=== PATIENT | female | born 1955 | race Asian ===

== ENCOUNTER 2017-10-31 12:05 | Emergency (ER) | payer BC, OTHER ==
[2017-10-31] MEDS ORDERED: Bacitracin Oint 1 GM U/D Packet TOP ONE (12:46)
--- NOTE | 2017-10-31 12:51 | EDM.PDOC ---
ED HPI GENERAL MEDICAL PROBLEM - General Chief Complaint: Exposure to Heat or Cold Stated Complaint: BURN ON LEFT HAND Time Seen by Provider: 10/31/17 12:41 Source of Information: Reports: Patient, RN Notes Reviewed History Limitations: Reports: No Limitations - History of Present Illness INITIAL COMMENTS - FREE TEXT/NARRATIVE: This is a work injury 62-year-old female presents to the emergency department today with complaint of burn on her left hand. 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 Left Hand Pain Score (Numeric/FACES): 8 - Related Data Allergies Allergy/AdvReac Type Severity Reaction Status Date / Time No Known Allergies Allergy Verified 10/31/17 12:21 Home Meds: Home Meds Calcium Carbonate/Vitamin D3 [Calcium Carbonate/Vitamin D 600 MG-200 Unit] 1 tab PO DAILY 08/28/17 [History] Cholecalciferol (Vitamin D3) [Vitamin D3] 1,000 units PO DAILY 08/28/17 [History ] Gluc 2KCl/Chondr/Muriel Hy/Hy Ac [Glucosamine & Chondroitin Cap] 1 each PO DAILY 08/28/17 [History] Glucosamine [Glucosamine Sulfate] 500 mg PO DAILY 08/28/17 [History] Vitamin E 400 units PO DAILY 08/28/17 [History] Bacitracin [Bacitracin Oint] 15 gm .XX DAILY #1 tube 10/31/17 [Rx] 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: Musculoskeletal History: Reports: Other (See Below) Other Musculoskeletal History: R knee pain - Infectious Disease History Infectious Disease History: Reports: Chicken Pox - Past Surgical History Female Surgical History: Reports: Section Social & Family History - Tobacco Use Smoking Status *Q: Never Smoker Second Hand Smoke Exposure: No - Caffeine Use Caffeine Use: Reports: Coffee - Alcohol Use Days Per Week of Alcohol Use: 0 - Recreational Drug Use Recreational Drug Use: No ED ROS GENERAL - Review of Systems Review Of Systems: See Below Constitutional: Reports: No Symptoms Skin: Reports: Wound, Burn(s) ED EXAM, GENERAL - Physical Exam Exam: See Below Free Text/Narrative:: Examination left hand she does have a few blisters that are starting to form palmar surface of his about the size of $0.50 piece, full range of motion all digits radial pulse +2 Exam Limited By: No Limitations General Appearance: Alert, WD/WN, No Apparent Distress Course - Vital Signs Last Recorded V/S: Last Vital Signs Temp 97.5 F 10/31/17 12:27 Pulse 63 10/31/17 12:27 Resp 16 10/31/17 12:27 BP 159/105 H 10/31/17 12:27 Pulse Ox 98 10/31/17 12:27 - Orders/Labs/Meds Meds: Medications Discontinued Medications Generic Name Dose Route Start Last Admin Trade Name Freddie PRN Reason Stop Dose Admin Bacitracin 1 dose 10/31/17 12:46 Bacitracin Oint 1 Gm TOP 10/31/17 12:47 ONETIME ONE Departure - Departure Time of Disposition: 14:05 Disposition: Home, Self-Care 01 Condition: Good Clinical Impression: Partial thickness burn of left hand Qualifiers: Encounter type: initial encounter Burn of hand location: palm Qualified Code(s) : T23.252A - Burn of second degree of left palm, initial encounter - Discharge Information Prescriptions: Bacitracin [Bacitracin Oint] 15 gm .XX DAILY #1 tube Instructions: Burn Care, Adult, [id number] Referrals: PCP,None [Primary Care Provider] - Forms: ED Department Discharge Additional Instructions: Continue to dress the wound with bacitracin antibiotic and clean dressings daily , Please followup with your primary care provider in 3 to 5 days if not better , please call return to the emergency department with worsening of symptoms. - Assessment/Plan Plan: Assessment Acuity = acute Site and laterality = partial-thickness burn left hand Etiology = secondary to touching a hot stove Manifestations = pain Location of injury = work Lab values = none Plan Bacitracin was used to cover the wound topically dressing applied tetanus up-to- date, follow-up primary care 3-5 days if no improvement This note was dictated using [employer] voice recognition software please call with any questions on syntax or grammar.
== END 2017-10-31 13:08 | disposition home or self-care (01) ==
LOC: JP.ED 12:05
DX: T23.252A Burn of second degree of left palm, initial encounter (principal); X15.0XXA Contact with hot stove (kitchen), initial encounter
CPT/HCPCS: 99283

== ENCOUNTER 2018-03-01 08:52 | Emergency (ER) | payer BC ==
--- NOTE | 2018-03-01 09:27 | EDM.PDOC ---
ED HPI GENERAL MEDICAL PROBLEM - General Chief Complaint: Neurological Problem Stated Complaint: VOMITING DIZZY Time Seen by Provider: 03/01/18 09:00 Source of Information: Reports: Patient History Limitations: Reports: No Limitations - History of Present Illness INITIAL COMMENTS - FREE TEXT/NARRATIVE: 62-year-old female with sudden onset of vomiting and vertigo 3 hours ago. She felt fine prior to symptom onset. No headache, fevers or chills. She is having trouble standing and initially had persistent vomiting. No recent trauma or illness. No previous episodes. She is otherwise healthy. Onset: Sudden Duration: Hour(s): (3 hours ago) Associated Symptoms: Reports: Malaise, Nausea/Vomiting. Denies: Confusion, Chest Pain, Cough, Headaches - Related Data Allergies Allergy/AdvReac Type Severity Reaction Status Date / Time No Known Allergies Allergy Verified 03/01/18 09:04 Home Meds: Home Meds Calcium Carbonate/Vitamin D3 [Calcium Carbonate/Vitamin D 600 MG-200 Unit] 1 tab PO DAILY 08/28/17 [History] Cholecalciferol (Vitamin D3) [Vitamin D3] 1,000 units PO DAILY 08/28/17 [History ] Gluc 2KCl/Chondr/Muriel Hy/Hy Ac [Glucosamine & Chondroitin Cap] 1 each PO DAILY 08/28/17 [History] Glucosamine [Glucosamine Sulfate] 500 mg PO DAILY 08/28/17 [History] Vitamin E 400 units PO DAILY 08/28/17 [History] Past Medical History 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 Denies: Fever, Chills HEENT: Reports: Vertigo. Denies: Ear Pain, Vision Change Respiratory: Denies: Shortness of Breath Cardiovascular: Denies: Chest Pain, Palpitations GI/Abdominal: Reports: Nausea, Vomiting. Denies: Abdominal Pain : Reports: No Symptoms Skin: Reports: No Symptoms Neurological: Reports: Dizziness. Denies: Headache ED EXAM, NEURO - Physical Exam Exam: See Below Exam Limited By: No Limitations General Appearance: Alert, Mild Distress (Looks very uncomfortable) Eye Exam: Bilateral Eye: Nystagmus (Nystagmus to the right is fairly significant ) Head Exam: Atraumatic Respiratory/Chest: No Respiratory Distress Cardiovascular: Regular Rate, Rhythm Neurological: Alert, Oriented x 3 Course - Vital Signs Last Recorded V/S: Last Vital Signs Temp 96.4 F 03/01/18 09:01 Pulse 62 03/01/18 09:01 Resp 16 03/01/18 09:01 BP 183/100 H 03/01/18 09:01 Pulse Ox 98 03/01/18 09:01 - Orders/Labs/Meds Meds: Medications Discontinued Medications Generic Name Dose Route Start Last Admin Trade Name Freddie PRN Reason Stop Dose Admin Sodium Chloride 1,000 mls @ 500 mls/hr 03/01/18 09:45 03/01/18 09:40 Normal Saline IV 500 mls/hr ASDIRECTED DONG Administration Lorazepam 0.5 mg 03/01/18 09:33 03/01/18 09:39 Ativan IVPUSH 03/01/18 09:34 0.5 mg ONETIME ONE Administration Methylprednisolone Sodium Succinate 40 mg 03/01/18 09:33 03/01/18 09:39 Solu-Medrol IVPUSH 03/01/18 09:34 40 mg ONETIME ONE Administration Ondansetron HCl 4 mg 03/01/18 09:33 03/01/18 09:39 Zofran IVPUSH 03/01/18 09:34 4 mg ONETIME ONE Administration - Re-Assessments/Exams Free Text/Narrative Re-Assessment/Exam: 03/01/18 09:36 Hyperextension of the neck with the patient lying supine caused increased symptoms to the left so an Eppley maneuver focusing on the left side was attempted. After 10-15 minutes this really didn't give her any improvement of symptoms. An IV was then started, she was given 4 mg of IV Zofran, 0.5 mg of Ativan and 40 mg of Solu-Medrol. She was hydrated with a liter of normal saline over 2 hours. 03/01/18 14:50 Symptoms did improve after 3 hours but when she got up she was still very unsteady and had significant vertigo with nystagmus. A CT of the head was then done which was normal. We were unable to admit the patient due to lack of beds so she rested in the emergency room for an additional period of time. 03/01/18 16:15 Patient continued to improve but even after 8 hours was still symptomatic and had objective vertigo and nystagmus. An MRI of the brain was scheduled for 8:30 tomorrow morning, she'll return for her MRI. Departure - Departure Time of Disposition: 17:17 Disposition: Home, Self-Care 01 Condition: Good Clinical Impression: Vertigo - Discharge Information Instructions: Vertigo, [id number] Referrals: Stephanie Barker PA [Primary Care Provider] - Forms: ED Department Discharge Care Plan Goals: Rest tonight, return tomorrow for an MRI at 8:30
[2018-03-01] MEDS ORDERED: methylPREDNISolone Sodium Succinate 40 MG/1 ML SDV IVPUSH ONE (09:33)
[2018-03-01] MEDS ORDERED: Ondansetron 4 MG/2 ML SDV IVPUSH ONE (09:33)
[2018-03-01] MEDS ORDERED: LORazepam 2 MG/ML SDV IVPUSH ONE (09:33)
[2018-03-01] MEDS ORDERED: Sodium Chloride 0.9% 1,000 ML IV SCH (09:45)
--- NOTE | 2018-03-01 12:42 | CT ---
Head wo Cont CLINICAL HISTORY: Severe vertigo COMPARISON: None TECHNIQUE: Transverse scans were obtained from the base of the skull through the vertex without IV contrast on a multislice, multidetector CT scanner. Auto dosage reduction and iterative reconstruction techniques employed. FINDINGS: No focal abnormal parenchymal density is identified. There is no mass effect, hemorrhage, or extraaxial collection. The basal cisterns and sulci over the convexities are normal. The ventricles are normal for age. There is moderate after scrotal calcification in the vertebrobasilar system IMPRESSION: No focal lesion, mass effect or hemorrhage Moderate atherosclerotic calcification in the vertebrobasilar system
== END 2018-03-01 17:16 | disposition home or self-care (01) ==
LOC: JP.ED 08:52
DX: R42 Dizziness and giddiness (principal); R11.2 Nausea with vomiting, unspecified; I10 Essential (primary) hypertension; Z79.899 Other long term (current) drug therapy
CPT/HCPCS: 70450; 96361; 96374; 96375; 99284; J2060; J2405; J2920; J7030

== ENCOUNTER 2021-02-01 07:09 | Emergency (ER) | payer OTHER, BC ==
[2021-02-01] MEDS ORDERED: Diphtheria,Pertussis(Acell),Tetanus Vaccine 0.5 ML Syringe IM ONE (07:18)
[2021-02-01] MEDS ORDERED: Silver Nitrate Applicator Each TOP ONE (07:18)
[2021-02-01] MEDS ORDERED: Lidocaine 1% with EPINEPHrine 1:100,000 50 ML MDV ONE (07:36)
[2021-02-01] MEDS ORDERED: Bacitracin Oint 1 GM U/D Packet TOP ONE (07:44)
[2021-02-01] MEDS ORDERED: Lidocaine 1% with EPINEPHrine 1:100,000 50 ML MDV SUBCUT ONE (07:45)
--- NOTE | 2021-02-01 07:55 | EDM.PDOC ---
ED HPI GENERAL MEDICAL PROBLEM - General Chief Complaint: Laceration Stated Complaint: CUT HAND Time Seen by Provider: 02/01/21 07:51 Source of Information: Reports: Patient, RN Notes Reviewed History Limitations: Reports: No Limitations - History of Present Illness INITIAL COMMENTS - FREE TEXT/NARRATIVE: 65-year-old female presents emergency department today with fingertip amputation she injured herself while at work with a cutting knife no functional complaints, injury happened at work Left Finger-Index Pain Score (Numeric/FACES): 3 - Related Data Allergies Allergy/AdvReac Type Severity Reaction Status Date / Time No Known Allergies Allergy Verified 02/01/21 07:21 Home Meds: Home Meds Calcium Carbonate/Vitamin D3 [Calcium Carbonate/Vitamin D 600 MG-200 Unit] 1 tab PO DAILY 08/28/17 [History] Cholecalciferol (Vitamin D3) [Vitamin D3] 1,000 units PO DAILY 08/28/17 [History] Glucosam/Chondr/Collagn/Hyalur [Glucosamine & Chondroitin Cap] 1 each PO DAILY 08/28/17 [History] Glucosamine [Glucosamine Sulfate] 500 mg PO DAILY 08/28/17 [History] Vitamin E 400 units PO DAILY 08/28/17 [History] Metoprolol Succinate [Toprol XL] 25 mg PO DAILY 02/01/21 [History] Past Medical History HEENT History: Reports: Impaired Vision 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 Social & Family History - Tobacco Use Tobacco Use Status *Q: Never Tobacco User - Caffeine Use Caffeine Use: Reports: Coffee - Recreational Drug Use Recreational Drug Use: No ED ROS GENERAL - Review of Systems Review Of Systems: See Below Constitutional: Reports: No Symptoms Skin: Reports: Wound ED EXAM, SKIN/RASH Exam: See Below Text/Narrative:: Examination of the left hand digit #2 has a partial fingertip amputation the lateral aspect of digit #2 partial amputation of the fingernail and tip, bleeding was controlled combination finger tourniquet and silver nitrate pain was controlled with a digital block lidocaine with epinephrine half cc done in the usual fashion inferior to the DIP joint Exam Limited By: No Limitations General Appearance: Alert, WD/WN, No Apparent Distress Course - Vital Signs Last Recorded V/S: Last Vital Signs Temp 97.4 F 02/01/21 07:20 Pulse 68 02/01/21 07:20 Resp 16 02/01/21 07:20 BP 159/86 H 02/01/21 07:20 Pulse Ox 95 02/01/21 07:20 - Orders/Labs/Meds Orders: Active Orders 24 hr Category Date Time Status Vaccine to be Administered/Admin Charge [RC] ASDIRECTED Care 02/01/21 07:18 Active Meds: Medications Discontinued Medications Generic Name Dose Route Start Last Admin Trade Name Freq PRN Reason Stop Dose Admin Bacitracin 1 dose 02/01/21 07:44 Bacitracin Oint 1 Gm U/D Packet TOP 02/01/21 07:45 ONETIME ONE Diphtheria/Tetanus/Acell Pertussis 0.5 ml 02/01/21 07:18 02/01/21 07:41 Diphtheria,Pertussis(Acell),Tetanus Vaccine 0.5 Ml Syringe IM 02/01/21 07:19 0.5 ml .ONCE ONE Administration Lidocaine/Epinephrine Confirm 02/01/21 07:36 02/01/21 07:43 Lidocaine 1% With Epinephrine 1:100,000 50 Ml Mdv Administered 02/01/21 07:37 Not Given Dose 50 ml .ROUTE .STK-MED ONE Lidocaine/Epinephrine 3 ml 02/01/21 07:45 02/01/21 07:43 Lidocaine 1% With Epinephrine 1:100,000 50 Ml Mdv SUBCUT 02/01/21 07:46 3 ml ONETIME ONE Administration Silver Nitrate 1 each 02/01/21 07:18 02/01/21 07:41 Silver Nitrate Applicator Each TOP 02/01/21 07:19 1 each ONETIME ONE Administration Departure - Departure Time of Disposition: 07:54 Disposition: Home, Self-Care 01 Condition: Fair Clinical Impression: Fingertip amputation Qualifiers: Encounter type: initial encounter Qualified Code(s): S68.119A - Complete traumatic metacarpophalangeal amputation of unspecified finger, initial encounter - Discharge Information Instructions: Traumatic Finger Amputation Referrals: PCP,None [Primary Care Provider] - Additional Instructions: Please followup with your primary care provider in 3-5 days if not better, please call return to the emergency department with worsening of symptoms. Sepsis Event Note (ED) - Evaluation Sepsis Screening Result: No Definite Risk - Focused Exam Vital Signs: Vital Signs Temp Pulse Resp BP Pulse Ox 02/01/21 07:20 97.4 F 68 16 159/86 H 95 - My Orders Last 24 Hours: My Active Orders 02/01/21 07:18 Vaccine to be Administered/Admin Charge [RC] ASDIRECTED - Assessment/Plan Last 24 Hours: My Active Orders 02/01/21 07:18 Vaccine to be Administered/Admin Charge [RC] ASDIRECTED Plan: Assessment Acuity = acute Site and laterality = partial fingertip amputation digit #2 left hand Etiology = trauma with a knife Manifestations = none Location of injury = work Lab values = none Plan Follow-up primary care 3 to 5 days if not better otherwise follow wound care instruction sheet This note was dictated using [employer] voice recognition software please call with any questions on syntax or grammar.
== END 2021-02-01 08:12 | disposition home or self-care (01) ==
LOC: JP.ED 07:09
DX: S68.121A Partial traumatic metacarpophalangeal amputation of left index finger, initial encounter (principal); I10 Essential (primary) hypertension; Z23 Encounter for immunization; Z79.899 Other long term (current) drug therapy; W26.0XXA Contact with knife, initial encounter; Y92.89 Other specified places as the place of occurrence of the external cause; Y99.0 Civilian activity done for income or pay
CPT/HCPCS: 64450; 90471; 90715; 99282-25